=== PATIENT | male | born 1975 | race Caucasian/White ===

== ENCOUNTER 2018-03-02 08:59 | Observation (INO) | payer SELFPAY ==
[2018-03-02 09:06] VITALS: BMI 29.2
[2018-03-02] MEDS ORDERED: SODIUM CHLORIDE 0.9% 1000 ML INFUS.BAG IV ONE (09:31)
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
[2018-03-02 10:12] LABS: BASO % 0.3 % (0-2.0); EOS % 1.2 % (0-4.5); HEMATOCRIT 41.9 % (35.4-49); HEMOGLOBIN 13.6 GM/dL (11.7-16.9); LYMPH % 7.9 % (8-40); MCH 28.6 pg (25.7-33.7); MCHC 32.4 g/dl (32.0-35.9); MEAN CELL VOLUME 88.1 fl (80-96); MEAN PLT VOLUME 9.7 fl (7.5-11.1); MONO % 6.2 % (3.8-10.2); NEUT % 84.4 % (42.8-82.8); PLATELET COUNT 192 K/MM3 (134-434); RBC 4.76 M/mm3 (4.00-5.60); RDW 13.5 % (11.9-15.9); WHITE BLOOD COUNT 12.8 K/mm3 (4.0-10.0)
[2018-03-02 10:32] LABS: ANION GAP 8 (8-16); BILIRUBIN,TOTAL 0.6 mg/dL (0.2-1.0); BLOOD UREA NITROGEN 10 mg/dL (7-18); CALCIUM 8.1 mg/dL (8.5-10.1); CHLORIDE 108 mmol/L (98-107); CO2 26 mmol/L (21-32); CREATININE 0.6 mg/dL (0.7-1.3); GLUCOSE,RANDOM 112 mg/dL (74-106); SGOT/AST 16 U/L (15-37); SGPT/ALT 24 U/L (12-78); SODIUM 142 mmol/L (136-145); TOT PROT 6.8 g/dl (6.4-8.2)
[2018-03-02 10:33] LABS: ALK PHOS 97 U/L (45-117); INR 1.09 (0.82-1.09); PROTHROMBIN TIME (PATIENT) 12.3 SEC (9.7-13.0)
--- NOTE | 2018-03-02 12:00 | PDOC ---
Attending Attestation - Resident Resident Name: CollinjairoHang - ED Attending Attestation I have performed the following: I have examined & evaluated the patient, The case was reviewed & discussed with the resident, I agree w/resident's findings & plan - HPI HPI: 03/02/18 11:55 Healthy 42-year-old male presents with left lower leg injury from large metal pipe. Pipe was being lifted, slipped and fell striking his left hill, has had pain to the area since then. Did not attempt weightbearing, is complaining of some paresthesias in his foot. No other injuries. - Physicial Exam PE: 03/02/18 11:55 Vital signs normal Arrived with EMS with left leg splinted. He was seen upon arrival and sent to x- ray, I evaluated him after x-ray 2 superficial lacerations to the left hill, there is circumferential tenderness in the mid lower leg including the calf, which is quite swollen. There is no focal bony deformity, there is full range of motion of the knee and ankle with some muscular discomfort in the calf, neurovascularly intact distally with easily palpable pulse. - Medical Decision Making 03/02/18 11:57 Patient seen and evaluated with the resident. I agree with the overall evaluation, assessment, and management with the following summary of visit: 42-year-old male with left lower leg blunt injury, superficial lacerations. Rule out fracture, neurovascularly intact but with increasing swelling and tenderness of the left calf. Concern regarding evolving compartment syndrome. xrays Check CK elevate, pain control wound care, abx ppx, update tdap ortho consuly and likely obs for neurovascular checks. 03/02/18 16:15 CK 422. per note, [facility] not available so attempted compartment pressure read using A- line, but unsuccessful. Seen at bedside with Dr. Chavez, all agree no signs of acute nv compromise at this time. Will check CT leg to r/o fracture, continue to elevate. Proceed with admission for nv checks, vascular surgery following but no indication for fasciotomy at this time.
[2018-03-02] MEDS ORDERED: DIPHTH,PERTUSS(ACELL),TET 0.5 ML DISP.SYRIN IM ONE (12:45)
[2018-03-02] MEDS ORDERED: CEFAZOLIN 1 GM in DEXTROSE 5%-WATER - 50 ML IVPB ONE (12:45)
[2018-03-02] MEDS ORDERED: morphine SULFATE 4 MG/ML VIAL ONE (15:58)
--- NOTE | 2018-03-02 15:58 | PN ---
Teaching Attending Note Name of Resident: Juanita Madden ATTENDING PHYSICIAN STATEMENT I saw and evaluated the patient. I reviewed the resident's note and discussed the case with the resident. I agree with the resident's findings and plan as documented. SUBJECTIVE: Patient is a 42 yo male presented with LLE pain . as per patient, while he was at work a heavy beam fell on his LLE. OBJECTIVE: Vital Signs Temperature 97.9 F 03/02/18 09:02 Pulse Rate 65 03/02/18 09:02 Respiratory Rate 20 03/02/18 09:02 Blood Pressure 126/80 03/02/18 09:02 O2 Sat by Pulse Oximetry (%) 100 03/02/18 09:02 CBCD WBC 12.8 K/mm3 (4.0-10.0) H 03/02/18 09:50 RBC 4.76 M/mm3 (4.00-5.60) 03/02/18 09:50 Hgb 13.6 GM/dL (11.7-16.9) 03/02/18 09:50 Hct 41.9 % (35.4-49) 03/02/18 09:50 MCV 88.1 fl (80-96) 03/02/18 09:50 MCHC 32.4 g/dl (32.0-35.9) 03/02/18 09:50 RDW 13.5 % (11.9-15.9) 03/02/18 09:50 Plt Count 192 K/MM3 (134-434) 03/02/18 09:50 MPV 9.7 fl (7.5-11.1) 03/02/18 09:50 CMP Sodium 142 mmol/L (136-145) 03/02/18 09:50 Potassium 4.0 mmol/L (3.5-5.1) 03/02/18 09:50 Chloride 108 mmol/L (98-107) H 03/02/18 09:50 Carbon Dioxide 26 mmol/L (21-32) 03/02/18 09:50 Anion Gap 8 (8-16) 03/02/18 09:50 BUN 10 mg/dL (7-18) 03/02/18 09:50 Creatinine 0.6 mg/dL (0.7-1.3) L 03/02/18 09:50 Creat Clearance w eGFR > 60 (>60) 03/02/18 09:50 Random Glucose 112 mg/dL (74-106) H 03/02/18 09:50 Calcium 8.1 mg/dL (8.5-10.1) L 03/02/18 09:50 Total Bilirubin 0.6 mg/dL (0.2-1.0) 03/02/18 09:50 AST 16 U/L (15-37) 03/02/18 09:50 ALT 24 U/L (12-78) 03/02/18 09:50 Alkaline Phosphatase 97 U/L (45-117) 03/02/18 09:50 Total Protein 6.8 g/dl (6.4-8.2) 03/02/18 09:50 Albumin 4.0 g/dl (3.4-5.0) 03/02/18 09:50 CARDIAC ENZYMES Creatine Kinase 422 IU/L (39-308) H 03/02/18 12:11 Home Medications Medication Instructions Recorded NK [No Known Home Medication] 03/02/18 PE: pulses ar e positive, LLE calf is slightly tense, but RLE normal rest of PE per resident's note ASSESSMENT AND PLAN: The patient is a 42 year old male with no significant PMHx presented to ED with LLE injury after a heavy metal beam fell on his LE as per patient. came in to r/o LLE injury and to r/o compartment syndrome. # LLE Injury: -X ray of tibia/fibula, ankle negative for fracture; CTA of left lower extremity-mild swelling, no fractures -[place] Dr Roman, and Vascular was consulted, check LLE pulses every 2 hrs , Tyenol 650 mg PO, NPO for possible needing immediate sx for possible compartment syndrome. Follow H/H for possible bleed # slight elevation of CPK will Hydrate the patient with Normal Saline DVT: Heparin SQ TID
[2018-03-02] MEDS ORDERED: DEXTROSE 5%-NORMAL SALINE 1,000 ML IV SCH (16:00)
[2018-03-02] MEDS ORDERED: morphine CARPU-JECT 4 MG/1 ML DISP.SYRIN IVPUSH ONE (16:16)
[2018-03-02] MEDS: SODIUM CHLORIDE 1,000 ML IV SCH (16:20)
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
--- NOTE | 2018-03-02 16:59 | CONSULT ---
Consult Reason for Consultation:: called to evaluate for compartment syndrome left leg. 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 - History Source Limitations to Obtaining History: No Limitations - Alcohol/Substance Use Hx Alcohol Use: No - Smoking History Smoking history: Current some day smoker Have you smoked in the past 12 months: Yes Aproximately how many cigarettes per day: 3 Home Medications - Allergies Allergies/Adverse Reactions: Allergies Allergy/AdvReac Type Severity Reaction Status Date / Time No Known Allergies Allergy Verified 03/02/18 09:02 - Home Medications Home Medications: Ambulatory Orders NK [No Known Home Medication] 03/02/18 Review of Systems - Review of Systems Constitutional: reports: No Symptoms Eyes: reports: No Symptoms HENT: reports: No Symptoms Neck: reports: No Symptoms Cardiovascular: reports: No Symptoms Respiratory: reports: No Symptoms Gastrointestinal: reports: No Symptoms Genitourinary: reports: No Symptoms Musculoskeletal: reports: Extremity Pain Integumentary: reports: No Symptoms Neurological: reports: No Symptoms Endocrine: reports: No Symptoms Hematology/Lymphatic: reports: No Symptoms Psychiatric: reports: No Symptoms Physical Exam Vital Signs: Vital Signs Temperature 97.9 F 03/02/18 09:02 Pulse Rate 65 03/02/18 09:02 Respiratory Rate 20 03/02/18 09:02 Blood Pressure 126/80 03/02/18 09:02 O2 Sat by Pulse Oximetry (%) 100 03/02/18 09:02 Constitutional: Yes: Well Nourished Eyes: Yes: WNL HENT: Yes: WNL Neck: Yes: WNL Cardiovascular: Yes: WNL Respiratory: Yes: WNL Gastrointestinal: Yes: WNL Musculoskeletal: Yes: Other (calf wound) Extremities: Yes: Other (left calf swelling.) Edema: Yes Peripheral Pulses WNL: Yes Integumentary: Yes: WNL Wound/Incision: Yes: Clean/Dry Neurological: Yes: WNL ...Motor Strength: WNL Psychiatric: Yes: WNL Labs: CBC, BMP 03/02/18 09:50 03/02/18 09:50 Problem List - Problems (1) Trauma Code(s): T14.90XA - INJURY, UNSPECIFIED, INITIAL ENCOUNTER Assessment/Plan Left leg trauma 1. Palpable pulses. 2. MOtor and sensory intact. Pt to get CT of leg. xrays are negative for fracture. Will follow with neuro checks. Joaquim alcaraz DO
[2018-03-02] MEDS ORDERED: ACETAMINOPHEN 325 MG TABLET (FP) PO PRN (17:37)
[2018-03-02 18:22] LABS: HEMATOCRIT 38.7 % (35.4-49); HEMOGLOBIN 12.7 GM/dL (11.7-16.9); MCH 28.6 pg (25.7-33.7); MCHC 32.8 g/dl (32.0-35.9); MEAN CELL VOLUME 87.4 fl (80-96); MEAN PLT VOLUME 9.5 fl (7.5-11.1); PLATELET COUNT 217 K/MM3 (134-434); RBC 4.43 M/mm3 (4.00-5.60); RDW 13.4 % (11.9-15.9); WHITE BLOOD COUNT 7.9 K/mm3 (4.0-10.0)
[2018-03-02] MEDS ORDERED: morphine SULFATE 4 MG/ML VIAL IVPUSH ONE (20:03)
[2018-03-02] MEDS ORDERED: HEPARIN NA (PORCINE) 5,000 UNITS/ML 1ML VIAL SQ SCH (22:00)
[2018-03-02] MEDS: HEPARIN NA (PORCINE) 5,000 UNITS/ML 1ML VIAL SQ SCH (22:34)
[2018-03-03] MEDS: SODIUM CHLORIDE 1,000 ML IV SCH (05:46)
[2018-03-03] MEDS: HEPARIN NA (PORCINE) 5,000 UNITS/ML 1ML VIAL SQ SCH ×2 (05:47→15:07)
[2018-03-03 07:35] LABS: BASO % 0.6 % (0-2.0); EOS % 3.5 % (0-4.5); HEMATOCRIT 35.6 % (35.4-49); HEMOGLOBIN 11.9 GM/dL (11.7-16.9); LYMPH % 23.7 % (8-40); MCH 29.5 pg (25.7-33.7); MCHC 33.4 g/dl (32.0-35.9); MEAN CELL VOLUME 88.4 fl (80-96); MEAN PLT VOLUME 9.5 fl (7.5-11.1); MONO % 11.5 % (3.8-10.2); NEUT % 60.7 % (42.8-82.8); PLATELET COUNT 174 K/MM3 (134-434); RBC 4.02 M/mm3 (4.00-5.60); RDW 13.2 % (11.9-15.9); WHITE BLOOD COUNT 6.4 K/mm3 (4.0-10.0)
[2018-03-03 07:59] LABS: ALBUMIN 3.2 g/dl (3.4-5.0); ANION GAP 7 (8-16); BLOOD UREA NITROGEN 6 mg/dL (7-18); CALCIUM 7.4 mg/dL (8.5-10.1); CHLORIDE 108 mmol/L (98-107); CO2 26 mmol/L (21-32); GLUCOSE,RANDOM 93 mg/dL (74-106); POTASSIUM 3.9 mmol/L (3.5-5.1); SODIUM 141 mmol/L (136-145)
[2018-03-03 08:02] LABS: ALK PHOS 83 U/L (45-117); BILIRUBIN,TOTAL 0.6 mg/dL (0.2-1.0); CREATININE 0.5 mg/dL (0.7-1.3); SGOT/AST 37 U/L (15-37); SGPT/ALT 29 U/L (12-78); TOT PROT 5.6 g/dl (6.4-8.2)
--- NOTE | 2018-03-03 12:43 | PN ---
Progress Note (short form) - Note Progress Note: Surgery Patient being followed for Left Leg contusion. Patient states he is having a lot of pain and intermittent numbness in foot and toes but it's mostly controlled. He denies any CP, SOB, N/V/D, Fever or Chills. Vital Signs Temp 98.3 F 03/03/18 09:10 Pulse 58 L 03/03/18 09:10 Resp 16 03/03/18 09:10 BP 123/60 03/03/18 09:10 Pulse Ox 100 03/03/18 09:00 Intake & Output 03/02/18 03/03/18 03/03/18 23:59 11:59 23:59 Intake Total 0 1800 Output Total 600 1150 Balance -600 650 Weight 150 lb Intake: IV 1800 Normal Saline - 1,000 ml 1800 @ 150 mls/hr IV ASDIR ALINA Rx#:[id number] Oral 0 0 Output: Urine 600 1150 Void 600 1150 Other: Voiding Method Urinal Urinal Height 5 ft Body Mass Index (BMI) 29.2 Weight Measurement Method Built in [facility] CBC, BMP 03/03/18 06:30 03/03/18 06:30 PE: A&Ox3, NAD unlabored resp on RA Left LE laceration x2 over ihll with scabbing and slight ss d/c (oozing) from inferior site. lateral and deep compartments tense but soft and tender throughout, early signs of bruising with yellow color throughout. Sensation to light touch grossly intact throughout leg into foot and toes. patient can move toes but cannot dorsiflex 2/2 pain blocking, plantar flexion intact. +2 pedal and TP pulses. Problem List - Problems (1) Injury of tibia Assessment/Plan: Patient s/p leg contusion with no signs of compartment syndrome 1) Continue Neurovascular checks 2) encourage AROM and PROM of ankle/toes 3) Elevate and ice Left LE, NWB left LE 4) pain control No surgical intervention indicated. Please consult PRN On behalf of Dr Chavez, thank you for the opportunity to participate in this patient's care. Code(s): S89.90XA - UNSPECIFIED INJURY OF UNSPECIFIED LOWER LEG, INIT ENCNTR Qualifiers: Encounter type: initial encounter Laterality: left Qualified Code(s): S89.92XA - Unspecified injury of left lower leg, initial encounter
--- NOTE | 2018-03-03 14:08 | CON.ORTH ---
Consult Reason for Consultation:: left leg pain/swelling - Alcohol/Substance Use Hx Alcohol Use: No - Smoking History Smoking history: Current some day smoker Have you smoked in the past 12 months: Yes Aproximately how many cigarettes per day: 3 Home Medications - Allergies Allergies/Adverse Reactions: Allergies Allergy/AdvReac Type Severity Reaction Status Date / Time No Known Allergies Allergy Verified 03/02/18 09:02 - Home Medications Home Medications: Ambulatory Orders NK [No Known Home Medication] 03/02/18 Physical Exam for Ortho Vital Signs: Vital Signs Temperature 98.3 F 03/03/18 09:10 Pulse Rate 58 L 03/03/18 09:10 Respiratory Rate 16 03/03/18 09:10 Blood Pressure 123/60 03/03/18 09:10 O2 Sat by Pulse Oximetry (%) 100 03/03/18 09:00 Labs: CBC, BMP 03/03/18 06:30 03/03/18 06:30 INR, PTT INR 1.09 (0.82-1.09) 03/02/18 09:50 - Lower Extremity Leg: Yes: Left, Pain, Swelling, Tenderness, Other (good rom of knee and ankle, 2 + pulses b/l, good capillary refill, normal temp and sensation, nvi) Imaging - Results X-ray: Report Reviewed, Image Reviewed Cat Scan: Report Reviewed, Image Reviewed Assessment/Plan 42 year old male with a PMH of nephrolithiasis that presented to the hospital after injury of his left lower extremity earlier today (around 8AM). 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 CT neg for fx, no signs of compartment syndrome. a/p left LE contusion RICE wbat PT eval for crutch training ok to d/c from ortho pov d/w Dr. Roman f/u as outpt
[2018-03-03 14:18] VITALS: BP 118/66; PULSE 86; TEMP 97.9
--- NOTE | 2018-03-03 15:28 | PN ---
Physical Exam: SUBJECTIVE: Patient seen and examined at bedside. Overnight, pt medicated with morphine 4mg IVP x1 for pain in LLE. Today, pt states that his pain has improved mildly, however he is having trouble with weight bearing. Pulse checks have been conducted q2h. OBJECTIVE: Vital Signs Period Temp Pulse Resp BP Sys/French Pulse Ox Last 24 Hr 97.9 F-98.7 F 58-86 16-20 118-152/60-82 100-100 GENERAL: The patient is resting in bed, with LLE propped up on pillows. awake, alert, and fully oriented, in no acute distress. HEAD: Normal with no signs of trauma. EYES: PERRL, extraocular movements intact, sclera anicteric, conjunctiva clear. ENT: Ears normal, nares patent, oropharynx clear without exudates, moist mucous membranes. NECK: Trachea midline, supple. LUNGS: Breath sounds equal, clear to auscultation bilaterally, no wheezes, no crackles, no accessory muscle use. HEART: Regular rate and rhythm, S1, S2 without murmur, rub or gallop. ABDOMEN: Soft, nontender, nondistended, normoactive bowel sounds, no guarding, no rebound EXTREMITIES: strong, 2+ dorsalis pedis pulses. warm, well-perfused, no edema. + diffuse TTP L hill, +2 hill abrasions - without active bleeding NEUROLOGICAL: Cranial nerves II through XII grossly intact. Normal speech. difficulty with weight bearing PSYCH: Normal mood, normal affect. SKIN: Warm, dry, normal turgor Laboratory Results - last 24 hr 03/02/18 03/03/18 03/03/18 17:55 06:30 06:30 WBC 7.9 D 6.4 RBC 4.43 4.02 Hgb 12.7 11.9 Hct 38.7 35.6 MCV 87.4 88.4 MCH 28.6 29.5 MCHC 32.8 33.4 RDW 13.4 13.2 Plt Count 217 174 MPV 9.5 9.5 Neutrophils % 60.7 D Lymphocytes % 23.7 D Monocytes % 11.5 H D Eosinophils % 3.5 D Basophils % 0.6 Sodium 141 Potassium 3.9 Chloride 108 H Carbon Dioxide 26 Anion Gap 7 L BUN 6 L D Creatinine 0.5 L Creat Clearance w eGFR > 60 Random Glucose 93 Calcium 7.4 L Total Bilirubin 0.6 AST 37 D ALT 29 D Alkaline Phosphatase 83 Total Protein 5.6 L Albumin 3.2 L Active Medications Generic Name Dose Route Start Last Admin Trade Name Dea PRN Reason Stop Dose Admin Acetaminophen 650 mg 03/02/18 17:37 Tylenol - PO Q4H PRN MODERATE PAIN Heparin Sodium (Porcine) 5,000 unit 03/02/18 22:00 03/03/18 15:07 Heparin - SQ 5,000 unit TID LAINA Administration Radiology -L tibfib XR: without evidence of fx -L foot/ankle XR: without evidence of fx -L knee: no acute pathology, metallic density projected over soft tissues, medial proximal tibia -cervical spine XR: without fx -CT lower ext- no fx, without acute pathology -CXR: WNL, no infiltrates or effusions noted ASSESSMENT/PLAN: 42 y/o M with PMH nephrolithiasis who presents to the ED with injury to LLE. #Injury to LLE, r/o compartment syndrome -Currently with palpable, 2+ pulses dp, pt. continue pulse checks q2h -without evidence of fx on imaging -seen by ortho; weightbearing, RICE, PT recommended - F/u -seen by vascular; continued checks and pain control -no surgical intervention at this time -IVF have been d/c, to avoid increased pressure -pain control Tylenol 650mg PO q4h PRN #F/E/N -encourage PO intake -follow lytes -regular diet #PPX -DVT: Hep SQ 5000 TID -SCD RLE #Dispo continued monitoring, pulse checks without insurance, SW. discharge planning Visit type - Emergency Visit Emergency Visit: No - New Patient This patient is new to me today: No - Critical Care Critical Care patient: No
--- NOTE | 2018-03-03 16:31 | PN ---
Teaching Attending Note Name of Resident: Erica Hamilton ATTENDING PHYSICIAN STATEMENT I saw and evaluated the patient. I reviewed the resident's note and discussed the case with the resident. I agree with the resident's findings and plan as documented. SUBJECTIVE: No fever or chills . L leg pain . numbness in lateral aspect of L foot OBJECTIVE: NAD Cv " RRR, no MRG Lungs: CTAb ext: no edema or erythema on RLE. L leg with edema , tenderness and tight skin with laceration on anterior aspect. DP 2+ . PT 1+ b/l. nl sensation to light touch in LE except for slight decrease in sensation on lateral aspect of L foot . limited L ankle dorsflexion and plantar flexion due to pain in leg ASSESSMENT AND PLAN: 42 y/o man with h/o nephrolithiasis who presented with crush injury to L leg . 1- L leg trauma. No fx seen on exam. No signs or sx of compartment sx . no signs of infection - cont neuro vascular checks - pain control e -ice and elevation - PT eval possible dc in am
--- NOTE | 2018-03-03 21:58 | DS ---
Physical Exam: SUBJECTIVE: Patient seen and examined at bedside. Overnight, pt medicated with morphine 4mg IVP x1 for pain in LLE. Today, pt states that his pain has improved mildly, however he is having trouble with weight bearing. Pulse checks have been conducted q2h. OBJECTIVE: Vital Signs Period Temp Pulse Resp BP Sys/French Pulse Ox Last 24 Hr 97.9 F-98.7 F 58-86 16-20 118-127/60-78 100 PHYSICAL EXAM GENERAL: The patient is resting in bed, with LLE propped up on pillows. awake, alert, and fully oriented, in no acute distress. HEAD: Normal with no signs of trauma. EYES: PERRL, extraocular movements intact, sclera anicteric, conjunctiva clear. ENT: Ears normal, nares patent, oropharynx clear without exudates, moist mucous membranes. NECK: Trachea midline, supple. LUNGS: Breath sounds equal, clear to auscultation bilaterally, no wheezes, no crackles, no accessory muscle use. HEART: Regular rate and rhythm, S1, S2 without murmur, rub or gallop. ABDOMEN: Soft, nontender, nondistended, normoactive bowel sounds, no guarding, no rebound EXTREMITIES: strong, 2+ dorsalis pedis pulses. warm, well-perfused, no edema. + diffuse TTP L hill, +2 hill abrasions - without active bleeding NEUROLOGICAL: Cranial nerves II through XII grossly intact. Normal speech. difficulty with weight bearing PSYCH: Normal mood, normal affect. SKIN: Warm, dry, normal turgor LABS Laboratory Results - last 24 hr 03/03/18 03/03/18 06:30 06:30 WBC 6.4 RBC 4.02 Hgb 11.9 Hct 35.6 MCV 88.4 MCH 29.5 MCHC 33.4 RDW 13.2 Plt Count 174 MPV 9.5 Neutrophils % 60.7 D Lymphocytes % 23.7 D Monocytes % 11.5 H D Eosinophils % 3.5 D Basophils % 0.6 Sodium 141 Potassium 3.9 Chloride 108 H Carbon Dioxide 26 Anion Gap 7 L BUN 6 L D Creatinine 0.5 L Creat Clearance w eGFR > 60 Random Glucose 93 Calcium 7.4 L Total Bilirubin 0.6 AST 37 D ALT 29 D Alkaline Phosphatase 83 Total Protein 5.6 L Albumin 3.2 L Radiology -L tibfib XR: without evidence of fx -L foot/ankle XR: without evidence of fx -L knee: no acute pathology, metallic density projected over soft tissues, medial proximal tibia -cervical spine XR: without fx -CT lower ext- no fx, without acute pathology -CXR: WNL, no infiltrates or effusions noted HOSPITAL COURSE: Date of Admission:03/02/18 Date of Discharge: 03/03/18 Admit diagnosis: injury to LLE, r/o compartment syndrome. 42 y/o M with PMH nephrolithiasis who presented to the ED after injury of his LLE at 8am on day of admission. 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 Pt fell backwards, landing on his back, without LOC. He was wearing a helmet. Pt screamed out in pain for two minutes, before the beam was lifted. He developed immediate pain in his LE, described as burning, 10/10, localized to his L calf and anterior hill, a/w two lacerations. While on the medical floor, pt was examined by the vascular, orthopedic and medicine teams. He underwent extensive imaging (XR L tibfib, foot/ankle, cervical spine, knee, CT lower extremity) and was not found to have a fx in his LLE. Pt was recommended supportive care by ortho and vascular, pain control via Tylenol, rest, ice, elevation, physical therapy, and frequent pedal pulse checks to ensure viability of tissue in the lower extremity. No surgical intervention such as fasciotomy was needed. Compartment syndrome was r/o by improvement in pt 's clinical sx. Upon d/c, pt to follow up with [facility] at [address] [place] [address] and is not to return to work until cleared by a physician at that facility. Minutes to complete discharge: 38 Discharge Summary Reason For Visit: INJURY OF TIBIA,COMPARTMENT SYNDROME Condition: Stable - Instructions Diet, Activity, Other Instructions: You were recently in the hospital because a steel beam fell on your leg while you were working. You had x-rays taken of your left leg (tibia, fibula, foot, ankle, knee) which were negative for any fracture. You were seen by an orthopedic and cardiovascular rn, as well as the medicine team. Please take Tylenol as needed for pain. You should not exceed 3000mg a day. You may take ibuprofen if you have severe pain, however try to not take it frequently as it can cause kidney problems. You may alternate between the two. Please resume activity gradually; use your crutches to keep the weight off your leg. It will be difficult to bear weight on your leg at first, however it should improve with time. We also recommend you rest, ice, and elevated your left leg to help it heal. Please follow up at [facility]. [address], [place]. Telephone #: . You may call tomorrow to make an appointment for next week. Do not attend work until you are cleared by your physician to do so. please try to see Dr. Malone from ortho in 1 week as well Referrals: Kelvin Malone MD [Staff Physician] - Disposition: HOME - Home Medications Comprehensive Discharge Medication List: Ambulatory Orders Acetaminophen [Tylenol] 650 mg PO Q6H PRN #30 tablet 03/03/18 Ibuprofen 400 mg PO Q8H PRN #20 tablet 03/03/18 This patient is new to me today: Yes Date on this admission: 03/03/18 Emergency Visit: No Critical Care patient: No - Discharge Referral Referred to [facility] No
== END 2018-03-03 19:04 | disposition home or self-care (01) ==
LOC: JER 08:59 → JERBED 14:52 → J6S 19:00
PROVIDERS: ADMIT Internal Medicine; ATTEND Internal Medicine
PROC: 3E033NZ Introduction of Analgesics, Hypnotics, Sedatives into Peripheral Vein, Percutaneous Approach (ICD-10-PCS; principal; 2018-03-02)
PROC: 3E0337Z Introduction of Electrolytic and Water Balance Substance into Peripheral Vein, Percutaneous Approach (ICD-10-PCS; 2018-03-02)
PROC: 3E013GC Introduction of Other Therapeutic Substance into Subcutaneous Tissue, Percutaneous Approach (ICD-10-PCS; 2018-03-02)
PROC: 3E0234Z Introduction of Serum, Toxoid and Vaccine into Muscle, Percutaneous Approach (ICD-10-PCS; 2018-03-02)
DX: S89.92XA Unspecified injury of left lower leg, initial encounter (principal); T79.A22A Traumatic compartment syndrome of left lower extremity, initial encounter; F17.200 Nicotine dependence, unspecified, uncomplicated; S80.12XA Contusion of left lower leg, initial encounter; W22.8XXA Striking against or struck by other objects, initial encounter; Y93.89 Activity, other specified; Y92.89 Other specified places as the place of occurrence of the external cause; Y99.0 Civilian activity done for income or pay
CPT/HCPCS: 36415; 71045-TC-FY; 72050-TC-FY; 72070-TC-FY; 72100-TC-FY; 73560-TC-LT-FY; 73590-TC-LT-FY; 73610-TC-LT-FY; 73630-TC-LT; 73700-TC-RT; 80053; 82550; 82553; 85025; 85027; 85610; 90715; 99284-25; G0378; J1644; J7030

== ENCOUNTER 2018-03-06 21:33 | Emergency (ER) | payer SELFPAY ==
[2018-03-06 21:45] VITALS: PULSE 72; BMI 28.3
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
[2018-03-07 01:08] LABS: BASO % 0.7 % (0-2.0); EOS % 6.8 % (0-4.5); HEMATOCRIT 39.4 % (35.4-49); HEMOGLOBIN 12.9 GM/dL (11.7-16.9); LYMPH % 35.8 % (8-40); MCH 28.9 pg (25.7-33.7); MCHC 32.8 g/dl (32.0-35.9); MEAN PLT VOLUME 9.4 fl (7.5-11.1); MONO % 11.8 % (3.8-10.2); NEUT % 44.9 % (42.8-82.8); PLATELET COUNT 220 K/MM3 (134-434); RBC 4.48 M/mm3 (4.00-5.60); RDW 13.4 % (11.9-15.9); WHITE BLOOD COUNT 6.9 K/mm3 (4.0-10.0)
[2018-03-07 02:34] LABS: ALBUMIN 3.7 g/dl (3.4-5.0); ALK PHOS 93 U/L (45-117); ANION GAP 6 (8-16); BILIRUBIN,TOTAL 0.5 mg/dL (0.2-1.0); BLOOD UREA NITROGEN 13 mg/dL (7-18); CHLORIDE 106 mmol/L (98-107); CO2 28 mmol/L (21-32); CREATININE 0.6 mg/dL (0.7-1.3); GLUCOSE,RANDOM 102 mg/dL (74-106); POTASSIUM 3.9 mmol/L (3.5-5.1); SGOT/AST 36 U/L (15-37); SGPT/ALT 64 U/L (12-78); SODIUM 140 mmol/L (136-145); TOT PROT 6.6 g/dl (6.4-8.2)
[2018-03-07 04:30] VITALS: BP 115/72; TEMP 98
== END 2018-03-07 04:31 | disposition home or self-care (01) ==
LOC: JERFT 21:33 → JER 21:33
DX: T79.A22D Traumatic compartment syndrome of left lower extremity, subsequent encounter (principal); W22.8XXD Striking against or struck by other objects, subsequent encounter
CPT/HCPCS: 36415; 80053; 82550; 82553; 85025; 85651; 86140; 93971-TC; 99281-25

== ENCOUNTER 2022-09-17 00:28 | Emergency (ER) | payer SELFPAY ==
[2022-09-17 00:57] VITALS: BMI 32.3
[2022-09-17] MEDS ORDERED: ACETAMINOPHEN 325 MG TABLET (FP) PO ONE (01:25)
[2022-09-17] MEDS ORDERED: LIDOCAINE VISCOUS 2% ORAL/TOP 15 ML UNIT-DOSE CUP MM ONE (01:25)
[2022-09-17] MEDS ORDERED: LIDOCAINE VISCOUS 2% ORAL/TOP 15 ML UNIT-DOSE CUP ONE (01:44)
[2022-09-17] MEDS ORDERED: ACETAMINOPHEN 325 MG TABLET (FP) ONE (01:44)
[2022-09-17 02:22] VITALS: BP 127/90; PULSE 91; RESP 18; TEMP 98.4
[2022-09-17 03:28] LABS: THROAT:GRP A STREP NOT DETECTED (NOTDETECTED)
== END 2022-09-17 04:20 | disposition home or self-care (01) ==
LOC: JER 00:28
DX: J09.X2 Influenza due to identified novel influenza A virus with other respiratory manifestations (principal)
CPT/HCPCS: 0241U-QW; 71046-TC-FY; 87651; 99284-25